=== PATIENT | female | born 1940 | race Hispanic/Latino ===

== ENCOUNTER → 2018-03-26 | Day surgery (SDC) | payer OTHER ==
[2018-03-25 13:22] LABS: BASOPHILS # (AUTO) 0.1 (0.0-0.1); BASOPHILS % 1.1 % (0.0-1.0); EOSINOPHILS # (AUTO) 0.1 (0.0-0.4); EOSINOPHILS % 1.9 % (0.0-6.0); HEMATOCRIT 37.7 % (34.2-44.1); HEMOGLOBIN 12.7 g/dL (12.0-16.0); LYMPHOCYTES # (AUTO) 1.8 (1.0-3.2); LYMPHOCYTES % 38.7 % (18.0-39.1); MEAN CORPUSCULAR HGB CONC 33.7 g/dL (31-35); MONOCYTES # (AUTO) 0.4 (0.2-0.8); MONOCYTES % 8.2 % (4.4-11.3); NEUTROPHILS # (AUTO) 2.3 (2.1-6.9); NEUTROPHILS % 49.9 % (38.7-80.0); PLATELET COUNT 208 x10e3/uL (140-360); RED CELL DISTRIBUTION WIDTH 13.9 % (11.7-14.4)
[~2018-03-26] MED LIST: ALEVE PO; CALCIUM PO; FENTANYL CITRATE/PF 100MCG/2 ML INJ ONE; LIDOCAINE HCL 2% LOCAL INJ 5 ML SDV VIAL INJ ONE; MIDAZOLAM HCL 2 MG/2 ML VIAL ONE; MULTIVITAMINS1 EAC7 PO; PROPOFOL IV EMULSION 10 MG/ML 20 ML VIAL ONE
== END | disposition home or self-care (01) ==
LOC: OR 05:53
PROVIDERS: ATTEND Internal Medicine Gastroenterology
DX: Z09 Encounter for follow-up examination after completed treatment for conditions other than malignant neoplasm (principal); K63.5 Polyp of colon; K57.30 Diverticulosis of large intestine without perforation or abscess without bleeding; K64.8 Other hemorrhoids; A04.8 Other specified bacterial intestinal infections; M19.90 Unspecified osteoarthritis, unspecified site; E66.3 Overweight; Z01.810 Encounter for preprocedural cardiovascular examination; Z01.812 Encounter for preprocedural laboratory examination; Z68.27 Body mass index [BMI] 27.0-27.9, adult
CPT/HCPCS: 36415; 45380; 85025; 93005; J2001; J2250

== ENCOUNTER 2018-12-11 11:22 | Emergency (ER) | payer MEDICARE ==
[~2018-12-11] VITALS: Ht 149.9 cm; Wt 57.6 kg
[~2018-12-11 11:22] MED LIST changes: -FENTANYL CITRATE/PF 100MCG/2 ML INJ ONE; -LIDOCAINE HCL 2% LOCAL INJ 5 ML SDV VIAL INJ ONE; -MIDAZOLAM HCL 2 MG/2 ML VIAL ONE; -PROPOFOL IV EMULSION 10 MG/ML 20 ML VIAL ONE
--- OUTSIDE RECORDS SUMMARY | 2018-12-11 11:25 | XMS REPORT | Clinical Summary ---
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 Active ergocalciferol (VITAMIN Take 50,000 0 D2) 50,000 unit capsule Units by mouth once a week. Active cholecalciferol, vitamin Take 1,000 0 D3, (VITAMIN D3) 1,000 Units by unit tablet mouth daily. Active glucosamine/chondr pham A Take by mouth 0 sod (OSTEO BI-FLEX ORAL) daily. Active donepezil (ARICEPT) 10 MG Take 10 mg by 0 tablet mouth nightly. Active alendronate (FOSAMAX) 70 Take 70 mg by 0 MG tablet mouth every 7 days. Take in the morning with a full glass of water on an empty stomach, do NOT take anything else by mouth or lie down for the next 30 min. Active cyanocobalamin (VITAMIN Take 1,000 0 B-12) 1000 MCG tablet mcg by mouth daily. Active calcium carbonate-vitamin Take 1 tablet 0 D3 500 mg-200 unit per by mouth tablet daily. 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) 08/19/2018 Hospital Plastic Surgery Encounter Jay Salazar MD 07/22/2018 Anesthesia Plastic Surgery Event Ida Vance MD VITRECTOMY, SCLERAL BUCKLE, TRIESENCE AND INDOCYANINE GREEN APPLICATION AND EXTRUSION, MEMBRANECTOMY, PERFLUORON APPLICATION AND EXTRUSION, ENDOLASER, FLUID AIR EXCHANGE, SILICONE OIL 1000 APPLICATION, LEFT EYE 07/22/2018 Surgery Plastic Surgery Ida Vance MD Proliferative vitreoretinopathy of left eye (Primary Dx); 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 Last Filed Vital Signs Time Taken Vital Sign Reading 08/19/2018 10:31 AM TOPOLOGY TEACHER Blood Pressure 152/65 08/19/2018 10:31 AM TOPOLOGY TEACHER Pulse 68 08/19/2018 10:31 AM TOPOLOGY TEACHER Temperature 36.7 C (98 F) 08/19/2018 10:31 AM TOPOLOGY TEACHER Respiratory Rate 21 08/19/2018 10:31 AM TOPOLOGY TEACHER Oxygen Saturation 98% - Inhaled Oxygen - Concentration 08/19/2018 8:10 AM TOPOLOGY TEACHER Weight 59.4 kg (131 lb) 08/19/2018 8:10 AM TOPOLOGY TEACHER Height 149.9 cm (4' 11") 08/19/2018 8:10 AM TOPOLOGY TEACHER Body Mass Index 26.46 Plan of Treatment Not on file Implants Device Identifier Shelf Expiration Date Model / Serial / Lot Implanted Type Area Manufactur er 04/14/2023 [id number] / / [id number] Opthalmic Wide [employer] Surgical Left: Eye LABTICIAN Rossi 3.5mm - [id number] Implants; Implanted: Qty: 1 on 07/22/2018 by [employer]; Ida Vance MD Extenders; Surgical Wires 03/14/2023 [id number] / / [id number] Sleeve Rnd Styl 70 Sceleral Bcklng Surgical Left: Eye LABTICIAN Rossi Strl - [id number] Implants; Implanted: Qty: 1 on 07/22/2018 by [employer]; Ida Vance MD Extenders; Surgical Wires 07/15/2019 [id number] / / [id number] Oil Surgcl 8.5ml Silikon 1000 - Surgical N/A: N/A SANDRINE [id number] Implants; LABORATORI Implanted: Qty: 1 on 07/22/2018 by [employer]; ES [employer] Ida Vance MD Extenders; Surgical Wires 09/14/2019 [id number] / / Oil Surgcl 8.5ml Silikon 1000 - Surgical Left: Eye SANDRINE [id number] Implants; LABORATORI Implanted: Qty: 1 on 08/19/2018 by [employer]; ES Ida Bateman MD Extenders; Surgical Wires Procedures Comments Procedure Name Priority Date/Time Associated Diagnosis VITRECTOMY 08/19/2018 Retinal detachment with 8:00 AM TOPOLOGY TEACHER retinal defect, left Special Needs 25 GAUGE NEEDLE ECG 12-LEAD Routine 07/22/2018 10:53 AM TOPOLOGY TEACHER MA AN ELECTIVE Routine 07/22/2018 ENDOTRACHEAL AIRWAY 10:16 AM TOPOLOGY TEACHER Procedure Note - Bill Martínez CRNA - 07/22/2018 10:16 AM TOPOLOGY TEACHER Airway Performed by: BILL MARTÍNEZ Authorized by: JAY SALAZAR Location: OR Urgency: Elective Difficult Airway: No Anesthesio logist: JAY SALAZAR Resident/C RNA/AA: BILL MARTÍNEZ Performed by: anesthesio logist Preoxygena farida with 100% O2: Yes C-spine Precaution s Maintained Throughout : Yes Mask Ventilatio n: Easy mask Final Airway Type: Endotrache al airway Final Endotrache al Airway: CHRISTI tube Cuffed: Yes Technique Used: Direct laryngosco py Devices/Me thods Used in Placement: Intubatin g stylet Insertion Site: Oral Blade Type: [place] Laryngosco pe Blade/Vide olaryngosc ope Blade Size: 2 Cuff at minimum occlusion pressure: Yes Measured from: Teeth ETT to Teeth (cm): 21 Placement Verified by: CO2 detection, direct visualizat ion and equal breath sounds Laryngosco pic view: Grade I - full view of glottis Rapid Sequence Induction (RSI): No Modified RSI: No Number of Attempts at Approach: [address] Salazar. Teeth, gum and soft tissue all intact. VITRECTOMY 07/22/2018 Retinal traction with 9:20 AM TOPOLOGY TEACHER detachment, left Special Needs 25 GAUGE NEEDLE after 12/10/2017 Results * ECG 12 lead (07/22/2018 10:53 AM TOPOLOGY TEACHER) Ventricular rate 59 [facility] Atrial rate 59 [facility] MA interval 156 [facility] QRSD interval 82 [facility] QT interval 418 [facility] QTC interval 413 [facility] P axis 1 25 [facility] QRS axis 1 31 [facility] T wave axis 34 [facility] EKG impression Sinus bradycardia-Nonspecific [facility] T wave abnormality-Abnormal ECG-- Performing Organization Address City/State/Zipcode Phone Number [facility] [address] [place] [address] after 12/10/2017 Insurance Payer Benefit Subscriber ID Type Phone Address Plan / Group [facility] MEDICARE [facility] DUAL xxxxxxxxx HMO COMPLETE [facility] Advance Directives Patient has advance care planning documents on file. For more information, bryan yanez contact: William Navarro [address] [place] [address]
[2018-12-11] MEDS ORDERED: KETOROLAC TROMETHAMINE 60 MG/2 ML VIAL IM ONE (11:30)
[2018-12-11] MEDS ORDERED: HYDROCODONE/APAP 5MG-325MG TAB PO ONE (11:30)
--- NOTE | 2018-12-11 14:27 | Diagnostic Imaging Report ---
Exam: Thoracic spine 2 views and lumbar spine 2 views History: Back pain Comparison: None. Findings: Age-indeterminate mild compression fracture of T12 with less than 50% height loss. Multilevel degenerative endplate change with mild narrowing in the upper thoracic spine. Impression: Age-indeterminate mild compression fracture of T12 with less than 50% height loss Signed by: Dr. Lionel Padilla M.D. on 12/11/2018 2:24 PM
[2018-12-11 15:49] VITALS: BP 119/69
== END 2018-12-11 16:15 | disposition home or self-care (01) ==
LOC: ER 11:22
DX: S22.080A Wedge compression fracture of T11-T12 vertebra, initial encounter for closed fracture (principal); W01.0XXA Fall on same level from slipping, tripping and stumbling without subsequent striking against object, initial encounter; Y93.01 Activity, walking, marching and hiking; Y92.008 Other place in unspecified non-institutional (private) residence as the place of occurrence of the external cause
CPT/HCPCS: 72070; 72100; 93005; 99284; J1885